=== PATIENT | female | born 1935 | race Caucasian/White ===

== ENCOUNTER 2017-07-02 10:32 | Inpatient (IN) ==
[2017-07-02] MEDS ORDERED: ASPIRIN 325 MG TABLET ONE (11:47)
[2017-07-02] MEDS ORDERED: ENOXAPARIN 80 MG/0.8 ML SYRINGE SUBCUT ONE (11:47)
[2017-07-02] MEDS ORDERED: ENOXAPARIN 100 MG/ML SYRINGE SUBCUT STA (11:51)
[2017-07-02] MEDS ORDERED: NITROGLYCERIN SL 0.4 MG TABLET SL PRN (11:51)
[2017-07-02] MEDS ORDERED: ASPIRIN 325 MG TABLET PO STA (11:51)
[2017-07-02 12:05] LABS: Basophils # 0.1 10*3/uL (0.0-0.2); Basophils % 0.9 % (0.0-0.8); Eosinophils # 0.1 10*3/uL (0.0-0.87); Eosinophils % 1.2 % (0.00-10.9); Hematocrit 33.2 VOL% (35.7-47.0); Hemoglobin 10.5 GM/DL (12.0-16.0); Immature Granulocytes % 0.3 %; Immature Granulocytes Absolute 0.03 #; Lymphocytes # 0.9 10*3/uL (1.4-4.0); Lymphocytes % 9.1 % (21.3-54.2); Mean Corpuscular HGB Conc 31.6 GM/DL (32-36); Mean Corpuscular Hemoglobin 29 PG (27-34); Mean Platelet Volume 11.9 FL (9.6-12.0); Monocytes % 9.9 % (1.7-12.7); Neutrophils # 7.7 10*3/uL (1.4-7.4); Neutrophils % 78.6 % (38.7-73.9); Platelet Count 156 T/CUMM (130-400); Red Blood Count 3.69 MC/CUMM (3.8-5.5); Red Cell Distribution Width 13.9 % (9.3-17.3); White Blood Count 9.8 T/CUMM (4-12)
[2017-07-02] MEDS ORDERED: MIDAZOLAM 2 MG/2 ML VIAL ONE (12:34)
[2017-07-02] MEDS ORDERED: MEPERIDINE 25 MG/1 ML VIAL ONE (12:34)
[2017-07-02] MEDS ORDERED: LIDOCAINE 1% 20 ML VIAL ONE (12:37)
[2017-07-02 12:43] LABS: Alanine Aminotransferase 17 U/L (13-56); Albumin 3.3 G/DL (3.4-5.0); Alkaline Phosphatase 58 U/L (45-117); Aspartate Amino Transferase 18 U/L (0-37); Bilirubin,Total < 0.39 MG/DL (0.2-1.0); Blood Urea Nitrogen 27 MG/DL (7-18); Calcium 8.9 MG/DL (8.5-10.1); Glucose 115 MG/DL (74-106); Magnesium 2.1 MG/DL (1.8-2.4); Osmolality,Calculated 282.5 MOS/KG (273-304); Potassium 4.3 MMOL/L (3.5-5.1); Sodium 139 MMOL/L (136-145); Total Protein 6.2 G/DL (6.4-8.3)
[2017-07-02] MEDS ORDERED: MAGNESIUM SULF RIDER 2 GM in PREMIX 1 EACH IV PRN ×2 (12:51→14:21)
[2017-07-02] MEDS ORDERED: DIAZEPAM 5 MG TABLET PO ONE (12:51)
[2017-07-02] MEDS ORDERED: POTASSIUM CHLORIDE RIDER 10 MEQ in PREMIX 1 EACH IV PRN (12:51)
[2017-07-02] MEDS ORDERED: diphenhydrAMINE CAP 25 MG CAPSULE PO ONE (12:51)
[2017-07-02] MEDS ORDERED: METOPROLOL TARTRATE 5 MG/5 ML VIAL IV STA (13:01)
[2017-07-02] MEDS ORDERED: MAGNESIUM SULF RIDER 4 GM in PREMIX 1 EACH IV PRN (14:21)
[2017-07-02] MEDS ORDERED: ONDANSETRON 4 MG/2 ML VIAL IV PRN (14:21)
[2017-07-02] MEDS ORDERED: FUROSEMIDE 20 MG/2 ML VIAL ONE (14:24)
[2017-07-02] MEDS ORDERED: FUROSEMIDE 20 MG/2 ML VIAL IV ONE (14:59)
[2017-07-02] MEDS: ALBUTEROL/IPRATROPIUM 3 ML NEB RESP TX SCH ×2 (15:16→20:40)
[2017-07-02] MEDS: NITROGLYCERIN DRIP 50 MG/250 ML BOTTLE IV SCH (15:35)
[2017-07-02 16:03] LABS: CKMB % 10.6 %
[2017-07-02 16:04] LABS: Troponin I Only 2.33 NG/ML (0.00-0.045)
[2017-07-02] MEDS: LORazepam 1 MG TABLET PO PRN (17:54)
[2017-07-02] MEDS: SODIUM CHLORIDE 0.45% 1,000 ML IV SCH (17:56)
[2017-07-02] MEDS ORDERED: MAGNESIUM HYDROXIDE SUSP 30 ML UDCUP PO PRN (17:57)
[2017-07-02] MEDS ORDERED: CARVEDILOL 6.25 MG TABLET PO SCH (21:00)
[2017-07-02] MEDS: PANTOPRAZOLE 40 MG TABLET PO SCH (21:12)
[2017-07-02] MEDS: DOCUSATE SODIUM 100 MG CAPSULE PO SCH (21:12)
[2017-07-02] MEDS: traZODone 50 MG TABLET PO SCH (21:12)
[2017-07-02] MEDS: EZETIMIBE 10 MG TABLET PO SCH (21:12)
[2017-07-02] MEDS: CARVEDILOL 12.5 MG TABLET PO SCH (21:12)
[2017-07-03 02:07] LABS: Basophils % 0.6 % (0.0-0.8); Eosinophils # 0.1 10*3/uL (0.0-0.87); Eosinophils % 1.6 % (0.00-10.9); Hematocrit 29.3 VOL% (35.7-47.0); Hemoglobin 9.5 GM/DL (12.0-16.0); Immature Granulocytes % 0.3 %; Immature Granulocytes Absolute 0.02 #; Lymphocytes # 0.7 10*3/uL (1.4-4.0); Lymphocytes % 11.1 % (21.3-54.2); Mean Corpuscular HGB Conc 32.4 GM/DL (32-36); Mean Corpuscular Hemoglobin 28 PG (27-34); Mean Corpuscular Volume 87.5 FL (87-102); Monocytes # 0.6 10*3/uL (0.11-0.8); Monocytes % 10.3 % (1.7-12.7); Neutrophils # 4.7 10*3/uL (1.4-7.4); Neutrophils % 76.1 % (38.7-73.9); Platelet Count 123 T/CUMM (130-400); Red Blood Count 3.35 MC/CUMM (3.8-5.5); Red Cell Distribution Width 13.9 % (9.3-17.3); White Blood Count 6.2 T/CUMM (4-12)
[2017-07-03 02:44] LABS: Calcium 8.2 MG/DL (8.5-10.1); Magnesium 1.7 MG/DL (1.8-2.4); Osmolality,Calculated 284.4 MOS/KG (273-304); Potassium 3.7 MMOL/L (3.5-5.1)
[2017-07-03 02:53] LABS: Risk Ratio 4.49; VLDL CHOLESTEROL 25.6 MG/DL
[2017-07-03] MEDS: SODIUM CHLORIDE 0.45% 1,000 ML IV SCH ×2 (04:25→23:07)
[2017-07-03] MEDS: CHOLECALCIFEROL 1,000 UNIT TABLET PO SCH (08:17)
[2017-07-03] MEDS: ASPIRIN EC 81 MG TABLET PO SCH (08:17)
[2017-07-03] MEDS: ENOXAPARIN 40 MG/0.4 ML SYRINGE SUBCUT SCH ×2 (08:17→21:12)
[2017-07-03] MEDS: PANTOPRAZOLE 40 MG TABLET PO SCH ×2 (08:17→21:12)
[2017-07-03] MEDS: CARVEDILOL 12.5 MG TABLET PO SCH ×2 (08:17→21:12)
[2017-07-03] MEDS: DOCUSATE SODIUM 100 MG CAPSULE PO SCH ×2 (08:17→21:12)
[2017-07-03] MEDS: LORazepam 1 MG TABLET PO PRN ×2 (08:19→18:57)
[2017-07-03] MEDS: ALBUTEROL/IPRATROPIUM 3 ML NEB RESP TX SCH ×5 (09:04→20:05)
[2017-07-03 09:22] LABS: CKMB % 5.6 %
[2017-07-03 09:27] LABS: Troponin I Only 2.91 NG/ML (0.00-0.045)
[2017-07-03] MEDS: traZODone 50 MG TABLET PO SCH (21:12)
[2017-07-03] MEDS: EZETIMIBE 10 MG TABLET PO SCH (21:12)
[2017-07-03] MEDS: NITROGLYCERIN DRIP 50 MG/250 ML BOTTLE IV SCH (23:06)
[2017-07-04 03:20] LABS: Basophils # 0.1 10*3/uL (0.0-0.2); Basophils % 0.8 % (0.0-0.8); Eosinophils # 0.2 10*3/uL (0.0-0.87); Eosinophils % 2.5 % (0.00-10.9); Hematocrit 28.8 VOL% (35.7-47.0); Hemoglobin 9.4 GM/DL (12.0-16.0); Immature Granulocytes % 0.3 %; Immature Granulocytes Absolute 0.02 #; Lymphocytes # 0.7 10*3/uL (1.4-4.0); Mean Corpuscular HGB Conc 32.6 GM/DL (32-36); Mean Corpuscular Hemoglobin 29 PG (27-34); Mean Corpuscular Volume 87.5 FL (87-102); Mean Platelet Volume 12.3 FL (9.6-12.0); Monocytes # 0.8 10*3/uL (0.11-0.8); Neutrophils # 5.4 10*3/uL (1.4-7.4); Neutrophils % 75.4 % (38.7-73.9); Platelet Count 126 T/CUMM (130-400); Red Blood Count 3.29 MC/CUMM (3.8-5.5); Red Cell Distribution Width 14.1 % (9.3-17.3); White Blood Count 7.2 T/CUMM (4-12)
[2017-07-04 03:49] LABS: Calcium 7.9 MG/DL (8.5-10.1); Magnesium 2.5 MG/DL (1.8-2.4); Osmolality,Calculated 285.5 MOS/KG (273-304); Potassium 3.6 MMOL/L (3.5-5.1)
[2017-07-04] MEDS: ALBUTEROL/IPRATROPIUM 3 ML NEB RESP TX SCH ×6 (05:35→23:58)
[2017-07-04] MEDS: SODIUM CHLORIDE 0.45% 1,000 ML IV SCH (07:29)
[2017-07-04] MEDS: LORazepam 1 MG TABLET PO PRN ×2 (08:26→20:23)
[2017-07-04] MEDS: CHOLECALCIFEROL 1,000 UNIT TABLET PO SCH (08:26)
[2017-07-04] MEDS: DOCUSATE SODIUM 100 MG CAPSULE PO SCH ×2 (08:26→20:24)
[2017-07-04] MEDS: ENOXAPARIN 40 MG/0.4 ML SYRINGE SUBCUT SCH ×2 (08:27→20:24)
[2017-07-04] MEDS: PANTOPRAZOLE 40 MG TABLET PO SCH ×2 (08:27→20:23)
[2017-07-04] MEDS: CARVEDILOL 12.5 MG TABLET PO SCH ×2 (08:27→20:24)
[2017-07-04] MEDS: ASPIRIN EC 81 MG TABLET PO SCH (08:27)
[2017-07-04] MEDS: VENLAFAXINE 75 MG TABLET PO SCH ×2 (09:39→20:24)
[2017-07-04] MEDS: NITROGLYCERIN DRIP 50 MG/250 ML BOTTLE IV SCH ×2 (16:25→22:22)
[2017-07-04] MEDS: EZETIMIBE 10 MG TABLET PO SCH (20:24)
[2017-07-04] MEDS: traZODone 50 MG TABLET PO SCH (20:24)
[2017-07-05 04:38] LABS: Basophils % 0.5 % (0.0-0.8); Eosinophils # 0.2 10*3/uL (0.0-0.87); Eosinophils % 2.6 % (0.00-10.9); Hematocrit 27.7 VOL% (35.7-47.0); Immature Granulocytes % 0.3 %; Immature Granulocytes Absolute 0.02 #; Lymphocytes # 0.7 10*3/uL (1.4-4.0); Lymphocytes % 8.7 % (21.3-54.2); Mean Corpuscular HGB Conc 32.5 GM/DL (32-36); Mean Corpuscular Hemoglobin 29 PG (27-34); Mean Corpuscular Volume 87.7 FL (87-102); Mean Platelet Volume 11.5 FL (9.6-12.0); Monocytes # 0.8 10*3/uL (0.11-0.8); Monocytes % 9.7 % (1.7-12.7); Neutrophils # 6.2 10*3/uL (1.4-7.4); Neutrophils % 78.2 % (38.7-73.9); Platelet Count 118 T/CUMM (130-400); Red Blood Count 3.16 MC/CUMM (3.8-5.5)
[2017-07-05 05:34] LABS: Calcium 8.1 MG/DL (8.5-10.1); Magnesium 2.2 MG/DL (1.8-2.4); Osmolality,Calculated 279.7 MOS/KG (273-304); Potassium 4.1 MMOL/L (3.5-5.1)
[2017-07-05] MEDS: ALBUTEROL/IPRATROPIUM 3 ML NEB RESP TX SCH ×4 (07:39→20:38)
[2017-07-05] MEDS: CHOLECALCIFEROL 1,000 UNIT TABLET PO SCH (08:00)
[2017-07-05] MEDS: DOCUSATE SODIUM 100 MG CAPSULE PO SCH ×2 (08:00→20:19)
[2017-07-05] MEDS: PANTOPRAZOLE 40 MG TABLET PO SCH ×2 (08:00→20:19)
[2017-07-05] MEDS: LORazepam 1 MG TABLET PO PRN (08:01)
[2017-07-05] MEDS: ENOXAPARIN 40 MG/0.4 ML SYRINGE SUBCUT SCH ×2 (08:01→20:18)
[2017-07-05] MEDS: CARVEDILOL 12.5 MG TABLET PO SCH ×2 (08:01→20:18)
[2017-07-05] MEDS: ASPIRIN EC 81 MG TABLET PO SCH (08:01)
[2017-07-05] MEDS: VENLAFAXINE 75 MG TABLET PO SCH ×2 (08:02→20:18)
[2017-07-05] MEDS ORDERED: SODIUM PHOSPHATE ENEMA 133 ML BOTTLE RECTAL PRN (11:51)
[2017-07-05] MEDS: NITROGLYCERIN DRIP 50 MG/250 ML BOTTLE IV SCH ×2 (12:22→18:35)
[2017-07-05] MEDS: SODIUM CHLORIDE 0.45% 1,000 ML IV SCH (17:48)
[2017-07-05] MEDS: traZODone 50 MG TABLET PO SCH (20:18)
[2017-07-05] MEDS: EZETIMIBE 10 MG TABLET PO SCH (20:18)
[2017-07-06] MEDS: LORazepam 1 MG TABLET PO PRN ×2 (00:32→09:58)
[2017-07-06] MEDS: NITROGLYCERIN DRIP 50 MG/250 ML BOTTLE IV SCH ×5 (00:34→23:19)
[2017-07-06 03:23] LABS: Basophils # 0.1 10*3/uL (0.0-0.2); Basophils % 0.7 % (0.0-0.8); Eosinophils # 0.3 10*3/uL (0.0-0.87); Eosinophils % 3.8 % (0.00-10.9); Hematocrit 23.9 VOL% (35.7-47.0); Hemoglobin 7.7 GM/DL (12.0-16.0); Immature Granulocytes % 0.3 %; Immature Granulocytes Absolute 0.02 #; Lymphocytes # 0.7 10*3/uL (1.4-4.0); Lymphocytes % 10.5 % (21.3-54.2); Mean Corpuscular HGB Conc 32.2 GM/DL (32-36); Mean Corpuscular Hemoglobin 29 PG (27-34); Mean Corpuscular Volume 89.2 FL (87-102); Mean Platelet Volume 11.6 FL (9.6-12.0); Monocytes # 0.7 10*3/uL (0.11-0.8); Monocytes % 10.6 % (1.7-12.7); Neutrophils % 74.1 % (38.7-73.9); Platelet Count 111 T/CUMM (130-400); Red Blood Count 2.68 MC/CUMM (3.8-5.5); White Blood Count 6.8 T/CUMM (4-12)
[2017-07-06 03:47] LABS: Calcium 7.7 MG/DL (8.5-10.1); Magnesium 1.9 MG/DL (1.8-2.4); Osmolality,Calculated 276.1 MOS/KG (273-304); Potassium 3.9 MMOL/L (3.5-5.1)
[2017-07-06] MEDS ORDERED: HEPARIN/NACL 0.9% 2 UNITS/ML 500 ML IV ONE (06:07)
[2017-07-06] MEDS: ALBUTEROL/IPRATROPIUM 3 ML NEB RESP TX SCH ×4 (07:33→19:51)
[2017-07-06] MEDS: CARVEDILOL 12.5 MG TABLET PO SCH ×2 (09:05→20:10)
[2017-07-06] MEDS: ENOXAPARIN 40 MG/0.4 ML SYRINGE SUBCUT SCH ×2 (09:05→20:09)
[2017-07-06] MEDS: ASPIRIN EC 81 MG TABLET PO SCH (09:06)
[2017-07-06] MEDS: HEPARIN/NACL 0.9% 2 UNITS/ML 500 ML IV SCH (09:06)
[2017-07-06] MEDS: CHOLECALCIFEROL 1,000 UNIT TABLET PO SCH (09:06)
[2017-07-06] MEDS: PANTOPRAZOLE 40 MG TABLET PO SCH ×2 (09:06→20:10)
[2017-07-06] MEDS: DOCUSATE SODIUM 100 MG CAPSULE PO SCH ×2 (09:06→20:09)
[2017-07-06] MEDS: VENLAFAXINE 75 MG TABLET PO SCH ×2 (09:10→20:09)
[2017-07-06] MEDS: CHLORHEXIDINE 0.12% ORAL RINSE 60 ML BOTTLE SWISH/SPIT SCH ×2 (09:11→20:10)
[2017-07-06] MEDS ORDERED: SODIUM CHLORIDE 0.9% 1,000 ML IV PRN (10:01)
[2017-07-06] MEDS: CHLORHEXIDINE 4% SOLN 118 ML BOTTLE TOP SCH ×2 (15:18→20:11)
[2017-07-06] MEDS ORDERED: hydrALAZINE 20 MG/1 ML VIAL IV ONE (15:39)
[2017-07-06] MEDS ORDERED: ALUMINUM/MAGNES/SIMETH MAX STR 30 ML UDCUP PO PRN (16:40)
[2017-07-06] MEDS ORDERED: SIMETHICONE CHEW 80 MG TABLET PO PRN (16:51)
[2017-07-06 17:07] LABS: Hematocrit 32.2 VOL% (35.7-47.0)
[2017-07-06] MEDS: SODIUM CHLORIDE 0.45% 1,000 ML IV SCH (18:22)
[2017-07-06] MEDS: traZODone 50 MG TABLET PO SCH (20:09)
[2017-07-06] MEDS: EZETIMIBE 10 MG TABLET PO SCH (20:09)
[2017-07-07] MEDS: LORazepam 1 MG TABLET PO PRN (02:23)
[2017-07-07] MEDS: NITROGLYCERIN DRIP 50 MG/250 ML BOTTLE IV SCH (03:15)
[2017-07-07] MEDS: SODIUM CHLORIDE 0.45% 1,000 ML IV SCH (04:24)
[2017-07-07] MEDS ORDERED: CEFUROXIME INJ 1,500 MG in SYRINGE 1 EACH IV ONE (05:00)
[2017-07-07] MEDS ORDERED: SODIUM CHLORIDE 0.9% 1,000 ML IV SCH (05:00)
[2017-07-07] MEDS ORDERED: VANCOMYCIN 1,000 MG VIAL ONE (05:25)
[2017-07-07] MEDS ORDERED: PAPAVERINE 60 MG/2 ML VIAL ONE (05:25)
[2017-07-07] MEDS ORDERED: TISSUE ADHESIVE 1 EACH APPLICATOR TOP ONE (05:25)
[2017-07-07] MEDS: CARVEDILOL 12.5 MG TABLET PO SCH ×2 (05:50→10:27)
[2017-07-07] MEDS ORDERED: DIAZEPAM 5 MG TABLET PO ONE (06:30)
[2017-07-07] MEDS: ALBUTEROL/IPRATROPIUM 3 ML NEB RESP TX SCH (07:19)
[2017-07-07] MEDS ORDERED: CALCIUM CHLORIDE 1,000 MG/10 ML SYRINGE IV ONE (07:52)
[2017-07-07] MEDS ORDERED: NITROPRUSSIDE 50 MG/2 ML VIAL ONE (07:52)
[2017-07-07] MEDS ORDERED: PHENYLEPHRINE DRIP 40 MG/250 ML PREMIX IV ONE (07:52)
[2017-07-07] MEDS ORDERED: POTASSIUM CHLORIDE RIDER 0 ML IV ONE (07:53)
[2017-07-07] MEDS ORDERED: SODIUM BICARBONATE 50 MEQ/50 ML SYRINGE IV ONE ×3 (07:55→16:59)
[2017-07-07] MEDS ORDERED: EPINEPHrine 1 MG/10 ML SYRINGE ONE (07:56)
[2017-07-07] MEDS ORDERED: ALBUMIN 5% 12.5 GM/250 ML VIAL IV ONE (07:56)
[2017-07-07 08:24] LABS: ABG Base Excess -1.3 MMOL/L (-2.5-2.5); ABG HCO3 21.3 MMOL/L (20-26); ABG Oxygen Saturation 99.3 % (95-100); ABG PH 7.484 (7.35-7.45); ABG PO2 323.7 MM HG (80-95); ABG TCO2 22.2 MMOL/L (23-27); Glucose Heart Surgery 111 MG/DL (74-106); Hemoglobin Heart Surgery 10.7 G/DL (12.0-16.0); Ionized Calcium Arterial 1.02 MMOL/L (1.21-1.46); PH Patient Temp Arterial 7.484; PO2 Patient Temp Arterial 323.7 MM HG; Patient Temperature 37 CELCIUS; Sodium Heart/CVR 125 MMOL/L (135-145)
[2017-07-07 09:44] LABS: Apearance,Urine Slightly Hazy (Clear); Bacteria,Urine Occasional /HPF (Few); Bilirubin,Urine Negative (Negative); Blood, Urine Negative (Negative); Glucose,Urine (UA) Negative (Negative); Ketones,Urine Negative (Negative); Mucus,Urine Occasional /LPF (Occasional); Nitrite,Urine Negative (Negative); Protein,Urine 30 MG/DL; RBC,Urine 1 /HPF (0-4); Squamous Epithelial Cell,Urine Occasional /HPF (0-10); Urine Color Yellow (Yellow); Urine Specific Gravity 1.014 (1.001-1.035); Urine Urobilinogen < 2.0 EU/DL (0.2-1.0); WBC,Urine 2 /HPF (0-6)
[2017-07-07 09:45] LABS: Hematocrit Heart Surgery 25.4 PERCENT (37-47); Hemoglobin Heart Surgery 8.2 G/DL (12.0-16.0); PCO2 Patient Temp Venous 26.3 MM HG; PH Patient Temp Venous 7.53; PO2 Patient Temp Venous 37.9 MM HG; Potassium Heart/CVR 5.2 MMOL/L (3.5-5.1); VBG HCO3 24.3 MEQ/L (24-28); VBG Oxygen Saturation 87.8 %; VBG PCO2 30.4 MMHG (41-51); VBG PH 7.485; VBG PO2 46.6 MMHG (17-40)
[2017-07-07 10:11] LABS: Hematocrit Heart Surgery 25.9 PERCENT (37-47); Hemoglobin Heart Surgery 8.3 G/DL (12.0-16.0); PCO2 Patient Temp Venous 25.2 MM HG; PH Patient Temp Venous 7.549; PO2 Patient Temp Venous 41.5 MM HG; Potassium Heart/CVR 4.8 MMOL/L (3.5-5.1); VBG Base Excess 0.3 MEQ/L (0-4); VBG HCO3 24.6 MEQ/L (24-28); VBG Oxygen Saturation 92.1 %; VBG PCO2 30.5 MMHG (41-51); VBG PH 7.488; VBG PO2 54.3 MMHG (17-40)
[2017-07-07] MEDS: VENLAFAXINE 75 MG TABLET PO SCH (10:27)
[2017-07-07] MEDS: ASPIRIN EC 81 MG TABLET PO SCH (10:27)
[2017-07-07] MEDS: DOCUSATE SODIUM 100 MG CAPSULE PO SCH (10:27)
[2017-07-07] MEDS: HEPARIN/NACL 0.9% 2 UNITS/ML 500 ML IV SCH (10:27)
[2017-07-07] MEDS: ENOXAPARIN 40 MG/0.4 ML SYRINGE SUBCUT SCH (10:28)
[2017-07-07] MEDS: CHLORHEXIDINE 4% SOLN 118 ML BOTTLE TOP SCH (10:28)
[2017-07-07] MEDS: CHOLECALCIFEROL 1,000 UNIT TABLET PO SCH (10:28)
[2017-07-07] MEDS: PANTOPRAZOLE 40 MG TABLET PO SCH (10:28)
[2017-07-07] MEDS: CHLORHEXIDINE 0.12% ORAL RINSE 60 ML BOTTLE SWISH/SPIT SCH ×2 (10:28→20:49)
[2017-07-07 10:39] LABS: Hemoglobin Heart Surgery 8.7 G/DL (12.0-16.0); PCO2 Patient Temp Venous 23.9 MM HG; PH Patient Temp Venous 7.574; PO2 Patient Temp Venous 38.9 MM HG; Potassium Heart/CVR 4.9 MMOL/L (3.5-5.1); VBG Base Excess 0.8 MEQ/L (0-4); VBG HCO3 25.1 MEQ/L (24-28); VBG Oxygen Saturation 89.2 %; VBG PCO2 27.6 MMHG (41-51); VBG PH 7.528; VBG PO2 47.8 MMHG (17-40)
[2017-07-07] MEDS ORDERED: MAGNESIUM SULFATE 1 GM/2 ML VIAL ONE ×2 (11:10→11:27)
[2017-07-07 11:14] LABS: Hematocrit Heart Surgery 27.5 PERCENT (37-47); Hemoglobin Heart Surgery 8.9 G/DL (12.0-16.0); PCO2 Patient Temp Venous 31.9 MM HG; PH Patient Temp Venous 7.464; PO2 Patient Temp Venous 33.1 MM HG; Potassium Heart/CVR 4.6 MMOL/L (3.5-5.1); VBG Base Excess -0.3 MEQ/L (0-4); VBG HCO3 23.7 MEQ/L (24-28); VBG Oxygen Saturation 69.1 %; VBG PCO2 31.9 MMHG (41-51); VBG PH 7.464; VBG PO2 33.1 MMHG (17-40)
[2017-07-07] MEDS ORDERED: PHENYLEPHRINE DRIP 20 MG/250 ML PREMIX IV ONE ×2 (11:26→13:03)
[2017-07-07] MEDS ORDERED: DEXTROSE 5% KCL 20 MEQ 40 MEQ/2,000 ML BAG IV ONE (11:26)
[2017-07-07] MEDS ORDERED: ALBUMIN 25% 25 GM/100 ML VIAL IV ONE (11:26)
[2017-07-07] MEDS ORDERED: PROTAMINE SULFATE 250 MG/25 ML VIAL IV ONE (11:26)
[2017-07-07] MEDS ORDERED: HEPARIN 10,000 UNIT/10 ML VIAL ONE (11:27)
[2017-07-07] MEDS ORDERED: FUROSEMIDE 20 MG/2 ML VIAL ONE (11:27)
[2017-07-07] MEDS ORDERED: methylPREDNISolone SOD SUC 1,000 MG/8 ML VIAL ONE (11:27)
[2017-07-07] MEDS ORDERED: MANNITOL 12.5 GM/50 ML VIAL IV ONE (11:27)
[2017-07-07 11:33] LABS: ABG Base Excess -4.1 MMOL/L (-2.5-2.5); ABG Oxygen Saturation 99.9 % (95-100); ABG PCO2 27.1 MM HG (35-48); ABG PH 7.452 (7.35-7.45); ABG TCO2 17.5 MMOL/L (23-27); Glucose Heart Surgery 237 MG/DL (74-106); Hematocrit Heart Surgery 27.1 PERCENT (37-47); Hemoglobin Heart Surgery 8.7 G/DL (12.0-16.0); Ionized Calcium Arterial 1.18 MMOL/L (1.21-1.46); PCO2 Patient Temp Arterial 27.1 MMHG; PH Patient Temp Arterial 7.452; Patient Temperature 37 CELCIUS; Potassium Heart/CVR 4.8 MMOL/L (3.5-5.1)
[2017-07-07 11:34] LABS: Sodium Heart/CVR 120 MMOL/L (135-145)
[2017-07-07] MEDS ORDERED: SODIUM CHLORIDE 0.9% 250 ML IV PRN (12:48)
[2017-07-07] MEDS ORDERED: CALCIUM CHLORIDE 1,000 MG/10 ML SYRINGE IV PRN (12:48)
[2017-07-07] MEDS ORDERED: ONDANSETRON 4 MG/2 ML VIAL IV PRN (12:48)
[2017-07-07] MEDS ORDERED: POTASSIUM CHLORIDE RIDER 20 MEQ in PREMIX 1 EACH IV PRN (12:48)
[2017-07-07] MEDS ORDERED: POTASSIUM CHLORIDE RIDER 10 MEQ in PREMIX 1 EACH IV PRN (12:48)
[2017-07-07] MEDS ORDERED: MAGNESIUM SULF RIDER 4 GM in PREMIX 1 EACH IV PRN (12:48)
[2017-07-07] MEDS ORDERED: MAGNESIUM SULF RIDER 2 GM in PREMIX 1 EACH IV PRN (12:48)
[2017-07-07] MEDS ORDERED: MIDAZOLAM 2 MG/2 ML VIAL IV PRN (12:48)
[2017-07-07] MEDS ORDERED: CHLORHEXIDINE 4% SOLN 118 ML BOTTLE TOP PRN (12:48)
[2017-07-07] MEDS ORDERED: DEXTROSE 50% 25 GM/50 ML VIAL IV PRN (12:48)
[2017-07-07] MEDS ORDERED: MORPHINE 2 MG/1 ML SYRINGE IV PRN (12:48)
[2017-07-07] MEDS ORDERED: ACETAMINOPHEN 650 MG SUPP RECTAL PRN (12:48)
[2017-07-07] MEDS ORDERED: MORPHINE 10 MG/1 ML VIAL IV PRN (12:48)
[2017-07-07] MEDS ORDERED: SODIUM CHLORIDE 0.45% 1,000 ML IV SCH ×2 (13:00)
[2017-07-07] MEDS ORDERED: HEPARIN/NACL 0.9% 2 UNITS/ML 1,000 ML IV ONE (13:03)
[2017-07-07] MEDS ORDERED: PROPOFOL 200 MG/20 ML VIAL IV ONE (13:03)
[2017-07-07] MEDS ORDERED: CALCIUM CHLORIDE 1,000 MG/10 ML VIAL IV ONE (13:03)
[2017-07-07] MEDS ORDERED: VECURONIUM 10 MG VIAL IV ONE (13:04)
[2017-07-07] MEDS ORDERED: SEVOFLURANE 1 UNIT/15 MINUTE INH ONE (13:04)
[2017-07-07] MEDS ORDERED: MIDAZOLAM 10 MG/2 ML VIAL ONE (13:04)
[2017-07-07] MEDS ORDERED: ETOMIDATE 40 MG/20 ML VIAL IV ONE (13:04)
[2017-07-07] MEDS ORDERED: NITROGLYCERIN DRIP 50 MG/250 ML BOTTLE IV ONE (13:05)
[2017-07-07] MEDS ORDERED: SODIUM CHLORIDE 0.9% 1,000 ML IV ONE (13:05)
[2017-07-07] MEDS ORDERED: LACTATED RINGERS 1,000 ML IV ONE (13:05)
[2017-07-07] MEDS ORDERED: SODIUM CHLORIDE 0.9% 100 ML IV ONE (13:05)
[2017-07-07] MEDS ORDERED: AMINOCAPROIC ACID 5,000 MG/20 ML VIAL IV ONE (13:05)
[2017-07-07 13:37] LABS: Basophils # 0.1 10*3/uL (0.0-0.2); Basophils % 0.4 % (0.0-0.8); Eosinophils # 0.1 10*3/uL (0.0-0.87); Eosinophils % 0.5 % (0.00-10.9); Hematocrit 29.4 VOL% (35.7-47.0); Hemoglobin 9.9 GM/DL (12.0-16.0); Immature Granulocytes % 1.5 %; Immature Granulocytes Absolute 0.23 #; Lymphocytes % 6.3 % (21.3-54.2); Mean Corpuscular HGB Conc 33.7 GM/DL (32-36); Mean Corpuscular Hemoglobin 31 PG (27-34); Mean Corpuscular Volume 90.7 FL (87-102); Mean Platelet Volume 10.6 FL (9.6-12.0); Monocytes # 0.9 10*3/uL (0.11-0.8); Monocytes % 5.5 % (1.7-12.7); Neutrophils # 13.2 10*3/uL (1.4-7.4); Neutrophils % 85.8 % (38.7-73.9); Platelet Count 167 T/CUMM (130-400); Red Blood Count 3.24 MC/CUMM (3.8-5.5); Red Cell Distribution Width 14.3 % (9.3-17.3); White Blood Count 15.4 T/CUMM (4-12)
[2017-07-07 13:40] LABS: ABG Base Excess -8.7 MMOL/L (-2.5-2.5); ABG HCO3 17.5 MMOL/L (20-26); ABG Oxygen Saturation 99.9 % (95-100); ABG PH 7.347 (7.35-7.45); ABG TCO2 14.6 MMOL/L (23-27); Glucose Heart Surgery 355 MG/DL (74-106); Hematocrit Heart Surgery 30.8 PERCENT (37-47); Potassium Heart/CVR 4.6 MMOL/L (3.5-5.1)
[2017-07-07 13:47] LABS: INR 1.1; PT Patient Result 11.9 SECS; Partial Thromboplastin Time 39.7 SECS (0-40)
[2017-07-07 13:58] LABS: Blood Urea Nitrogen 25 MG/DL (7-18); Calcium 7.5 MG/DL (8.5-10.1); Glucose 345 MG/DL (74-106); Magnesium 2.9 MG/DL (1.8-2.4); Osmolality,Calculated 272.2 MOS/KG (273-304); Potassium 4.8 MMOL/L (3.5-5.1); Sodium 127 MMOL/L (136-145)
[2017-07-07 14:02] LABS: Lactic Acid 6.6 MMOL/L (0.4-2.0)
[2017-07-07] MEDS ORDERED: THROMBIN TOPICAL (RECOMBINANT) 5,000 UNIT VIAL TOP ONE (14:05)
[2017-07-07] MEDS ORDERED: DOBUTamine 500 MG/250 ML PREMIX IV ONE (14:39)
[2017-07-07] MEDS ORDERED: CALCIUM GLUCONATE 2,000 MG in SODIUM CHLORIDE 0.9% 100 ML IV ONE (14:41)
[2017-07-07] MEDS: DOBUTamine 500 MG/250 ML PREMIX IV SCH (14:45)
[2017-07-07] MEDS: ALBUMIN 5% 12.5 GM in PREMIX 1 EACH IV PRN ×4 (15:02→21:04)
[2017-07-07] MEDS: PHENYLEPHRINE DRIP 40 MG/250 ML PREMIX IV SCH ×2 (15:09→21:33)
[2017-07-07 15:59] LABS: ABG Base Excess -11.4 MMOL/L (-2.5-2.5); ABG HCO3 13.4 MMOL/L (20-26); ABG Oxygen Saturation 98.5 % (95-100); ABG PCO2 26.2 MM HG (35-48); ABG PH 7.326 (7.35-7.45); ABG PO2 251.5 MM HG (80-95); ABG TCO2 14.2 MMOL/L (23-27); Glucose Heart Surgery 340 MG/DL (74-106); Hemoglobin Heart Surgery 7.5 G/DL (12.0-16.0); Potassium Heart/CVR 4.6 MMOL/L (3.5-5.1)
[2017-07-07] MEDS: SODIUM BICARB INJ 50 MEQ in SODIUM CHLORIDE 0.45% 1,000 ML IV SCH (16:22)
[2017-07-07] MEDS: INSULIN REGULAR DRIP 100 ML IV SCH (16:55)
[2017-07-07] MEDS ORDERED: FUROSEMIDE 40 MG/4 ML VIAL IV ONE (18:15)
[2017-07-07] MEDS: INSULIN REGULAR 100 UNIT/ML IV PRN ×2 (18:18→19:57)
[2017-07-07 19:57] LABS: ABG Base Excess -9.5 MMOL/L (-2.5-2.5); ABG Oxygen Saturation 98.6 % (95-100); ABG PCO2 28.8 MM HG (35-48); ABG PH 7.334 (7.35-7.45); ABG PO2 171.4 MM HG (80-95); ABG TCO2 15.9 MMOL/L (23-27); Glucose Heart Surgery 231 MG/DL (74-106); Hemoglobin Heart Surgery 12.7 G/DL (12.0-16.0); Potassium Heart/CVR 4.5 MMOL/L (3.5-5.1)
[2017-07-07 20:14] LABS: Lactic Acid 4.3 MMOL/L (0.4-2.0)
[2017-07-07] MEDS: CEFUROXIME INJ 1,500 MG in SYRINGE 1 EACH IV SCH (20:47)
[2017-07-08] MEDS: SODIUM BICARB INJ 50 MEQ in SODIUM CHLORIDE 0.45% 1,000 ML IV SCH ×3 (00:51→17:01)
[2017-07-08] MEDS: PHENYLEPHRINE DRIP 40 MG/250 ML PREMIX IV SCH ×2 (02:39→08:40)
[2017-07-08 04:40] LABS: Basophils % 0.2 % (0.0-0.8); Eosinophils % 0.1 % (0.00-10.9); Hematocrit 34.9 VOL% (35.7-47.0); Hemoglobin 11.5 GM/DL (12.0-16.0); Immature Granulocytes Absolute 0.16 #; Lymphocytes % 6.3 % (21.3-54.2); Mean Corpuscular Hemoglobin 30 PG (27-34); Mean Corpuscular Volume 90.9 FL (87-102); Mean Platelet Volume 11.7 FL (9.6-12.0); Monocytes # 0.7 10*3/uL (0.11-0.8); Monocytes % 4.5 % (1.7-12.7); NRBC # 0.11 10*3/uL; Neutrophils # 13.9 10*3/uL (1.4-7.4); Neutrophils % 87.9 % (38.7-73.9); Platelet Count 59 T/CUMM (130-400); Red Blood Count 3.84 MC/CUMM (3.8-5.5); Red Cell Distribution Width 15.1 % (9.3-17.3); White Blood Count 15.8 T/CUMM (4-12)
[2017-07-08 05:24] LABS: Calcium 6.6 MG/DL (8.5-10.1); Magnesium 2.3 MG/DL (1.8-2.4); Osmolality,Calculated 271.5 MOS/KG (273-304); Potassium 4.7 MMOL/L (3.5-5.1)
[2017-07-08 05:40] LABS: Giant Platelets Few; Microcytosis Slight; Platelet Estimate Decreased
[2017-07-08] MEDS ORDERED: CALCIUM GLUCONATE 3,000 MG in SODIUM CHLORIDE 0.9% 100 ML IV ONE (08:00)
[2017-07-08] MEDS: CEFUROXIME INJ 1,500 MG in SYRINGE 1 EACH IV SCH ×2 (08:36→21:19)
[2017-07-08] MEDS: CHLORHEXIDINE 0.12% ORAL RINSE 60 ML BOTTLE SWISH/SPIT SCH ×2 (08:38→21:19)
[2017-07-08] MEDS ORDERED: ASPIRIN EC 325 MG TABLET PO SCH (12:38)
[2017-07-08] MEDS ORDERED: FUROSEMIDE 40 MG TABLET PO SCH (12:38)
[2017-07-08] MEDS: PHENYLEPHRINE INJ 160 MG in SODIUM CHLORIDE 0.45% 234 ML IV SCH ×2 (12:42→22:36)
[2017-07-08] MEDS: DOBUTamine 500 MG/250 ML PREMIX IV SCH ×2 (12:46→19:32)
[2017-07-08] MEDS: ATORVASTATIN 40 MG TABLET PO SCH ×2 (12:49→21:19)
[2017-07-08] MEDS ORDERED: FUROSEMIDE 40 MG/4 ML VIAL IV ONE (14:05)
[2017-07-08] MEDS: INSULIN REGULAR DRIP 100 ML IV SCH (14:37)
[2017-07-08] MEDS ORDERED: EPINEPHrine 1 MG/ML VIAL ONE (15:30)
[2017-07-08] MEDS ORDERED: INSULIN REGULAR 100 UNIT/ML SUBCUT SCH (16:00)
[2017-07-08 16:57] LABS: Calcium 7.2 MG/DL (8.5-10.1); Magnesium 2.6 MG/DL (1.8-2.4); Osmolality,Calculated 267.8 MOS/KG (273-304)
[2017-07-08 17:03] LABS: Potassium 6.5 MMOL/L (3.5-5.1)
[2017-07-08] MEDS ORDERED: CALCIUM GLUCONATE 1,000 MG/10 ML VIAL IV ONE (17:11)
[2017-07-08] MEDS ORDERED: SODIUM BICARBONATE 50 MEQ/50 ML SYRINGE IV ONE ×3 (17:13→20:15)
[2017-07-08] MEDS ORDERED: CALCIUM GLUCONATE 1,000 MG in SODIUM CHLORIDE 0.9% 100 ML IV ONE ×2 (17:23→20:16)
[2017-07-08] MEDS ORDERED: DEXTROSE 50% 25 GM/50 ML VIAL IV ONE (17:24)
[2017-07-08] MEDS ORDERED: INSULIN REGULAR 100 UNIT/ML IV ONE (17:25)
[2017-07-08] MEDS ORDERED: ALBUTEROL 2.5 MG/3 ML NEB RESP TX ONE (17:57)
[2017-07-08 18:10] LABS: Basophils # 0.1 10*3/uL (0.0-0.2); Basophils % 0.2 % (0.0-0.8); Hematocrit 35.9 VOL% (35.7-47.0); Hemoglobin 11.7 GM/DL (12.0-16.0); Immature Granulocytes % 1.8 %; Immature Granulocytes Absolute 0.42 #; Lymphocytes # 1.5 10*3/uL (1.4-4.0); Lymphocytes % 6.4 % (21.3-54.2); Mean Corpuscular HGB Conc 32.6 GM/DL (32-36); Mean Corpuscular Hemoglobin 30 PG (27-34); Mean Corpuscular Volume 92.5 FL (87-102); Mean Platelet Volume 12.9 FL (9.6-12.0); Monocytes # 1.8 10*3/uL (0.11-0.8); Monocytes % 7.8 % (1.7-12.7); NRBC # 0.45 10*3/uL; Neutrophils # 19.7 10*3/uL (1.4-7.4); Neutrophils % 83.8 % (38.7-73.9); Platelet Count 62 T/CUMM (130-400); Red Blood Count 3.88 MC/CUMM (3.8-5.5); Red Cell Distribution Width 15.6 % (9.3-17.3); White Blood Count 23.5 T/CUMM (4-12)
[2017-07-08] MEDS: INSULIN REGULAR 100 UNIT/ML SUBCUT SCH (20:22)
[2017-07-08 20:27] LABS: Anisocytosis 1+; Band Neutrophils 2 % (0-10); Lymphocytes 5 % (20-55); Macrocytosis 1+; Nucleated Red Blood Cells 1 (0-5); Platelet Estimate Decreased; Polychromasia Few; Segmented Neutrophils 90 % (50-85); Total Cells Counted 100
[2017-07-08] MEDS: INSULIN REGULAR 100 UNIT/ML IV PRN (21:03)
[2017-07-08] MEDS ORDERED: AMIODARONE 150 MG/3 ML VIAL ONE (21:08)
[2017-07-08] MEDS ORDERED: AMIODARONE INJ 150 MG in DEXTROSE 5% 100 ML IV ONE (21:13)
[2017-07-08] MEDS: DEXTROSE 50% 25 GM/50 ML VIAL IV PRN (21:19)
[2017-07-09] MEDS: INSULIN REGULAR 100 UNIT/ML SUBCUT SCH ×2 (00:13→04:21)
[2017-07-09] MEDS: DEXTROSE 50% 25 GM/50 ML VIAL IV PRN ×2 (00:14→04:21)
[2017-07-09] MEDS: SODIUM BICARB INJ 50 MEQ in SODIUM CHLORIDE 0.45% 1,000 ML IV SCH (01:17)
[2017-07-09] MEDS: PHENYLEPHRINE INJ 160 MG in SODIUM CHLORIDE 0.45% 234 ML IV SCH (05:05)
[2017-07-09 06:19] VITALS: BP 29/12
[2017-07-09] MEDS ORDERED: HEPARIN/NACL 0.9% 2 UNITS/ML 1,000 ML IV ONE (08:42)
== END 2017-07-09 06:22 | disposition expired | DRG 234 ==
LOC: N.ED 10:32 → N.CC 12:15 → N.EDINP 14:21 → N.CC 14:55 → N.CVR 07-07 07:49
PROVIDERS: ADMIT Internal Medicine Cardiovascular Disease; ATTEND Internal Medicine Cardiovascular Disease
PROC: CLCCHCL (ICD-10-PCS; 2017-07-02 12:45)